=== PATIENT | female | born 1945 | race Caucasian/White ===

== ENCOUNTER 2018-02-15 09:54 | Day surgery (SDC) | payer MEDICARE, BC ==
[2018-02-15] MEDS ORDERED: Sodium Chloride 0.9% 10 ML Syringe FLUSH PRN (10:00)
[2018-02-15] MEDS ORDERED: Lactated Ringers 1,000 ML IV SCH (10:00)
[2018-02-15] MEDS ORDERED: Propofol 200 MG/20 ML SDV ONE ×2 (11:33→11:35)
[2018-02-15] MEDS ORDERED: Midazolam 1 MG/ML 2 ML SDV ONE ×2 (11:33→11:35)
--- NOTE | 2018-02-15 11:38 | PCM.PN ---
- General Info Date of Service: 02/15/18 - Review of Systems Systems Review Comment:: 72-year-old female referred by Dr. Sina Parks for colonoscopy. She has been having difficulty with it significant change in bowel pattern over the last 2 months. She has developed profound constipation. She is medically stable to proceed with colonoscopy. There is been no significant change in her health status since her recent exam. I have discussed the proposed colonoscopy with the patient. Risks such as but not limited to bleeding and GI injury reviewed. She appears to understand and agrees to proceed. - Patient Data Vitals - Most Recent: Last Vital Signs Temp 98.0 F 02/15/18 10:43 Pulse 73 02/15/18 10:43 Resp 18 02/15/18 10:43 BP 138/60 02/15/18 10:43 Pulse Ox 96 02/15/18 10:43 Weight - Most Recent: 65.317 kg Med Orders - Current: Current Medications Lactated Ringer's (Ringers, Lactated) 1,000 mls @ 125 mls/hr IV ASDIRECTED BISHOP Last Admin: 02/15/18 11:15 Dose: 125 mls/hr Sodium Chloride (Saline Flush) 10 ml FLUSH ASDIRECTED PRN PRN Reason: Keep Vein Open Discontinued Medications Midazolam HCl (Versed 1 Mg/Ml) Confirm Administered Dose 2 mg .ROUTE .STK-MED ONE Stop: 02/15/18 11:34 Propofol (Diprivan 20 Ml) Confirm Administered Dose 200 mg .ROUTE .STK-MED ONE Stop: 02/15/18 11:34 - Problem List Review Problem List Initiated/Reviewed/Updated: Yes - My Orders Last 24 Hours: My Active Orders 02/15/18 10:00 Patient Status [ADT] Routine Peripheral IV Care [RC] . DIRECTED Verify Patient Consent Obtain [RC] ASDIRECTED Lactated Ringers [Ringers, Lactated] 1,000 ml IV ASDIRECTED Sodium Chloride 0.9% [Saline Flush] 10 ml FLUSH ASDIRECTED PRN Peripheral IV Insertion Adult [OM.PC] Routine - Assessment Assessment:: Change in bowel pattern - Plan Plan:: Colonoscopy
--- NOTE | 2018-02-15 12:19 | PCM.OPNOTE ---
- General Post-Op/Procedure Note Date of Surgery/Procedure: 02/15/18 Operative Procedure(s): Colonoscopy Findings: Mild sigmoid diverticulosis Tortuous colon Pre Op Diagnosis: Change in bowel habits Post-Op Diagnosis: Diverticulosis Anesthesia Technique: MAC Primary Surgeon: Kirt Carrasquillo Pathology: none Output, Urine Amount: 0 EBL in mLs: 0 Complications: None Condition: Good Free Text/Narrative:: Intake & Output 02/14/18 02/15/18 02/15/18 22:59 06:59 14:59 Intake Total 300 Balance 300
[2018-02-15 13:25] VITALS: BP 122/67
--- NOTE | 2018-02-15 16:17 | OR ---
Date of Procedure: 02/15/2018 PREOPERATIVE DIAGNOSIS: Change in bowel habits. POSTOPERATIVE DIAGNOSIS: Diverticulosis. OPERATION PERFORMED: Colonoscopy. INDICATIONS FOR SURGERY: This 72-year-old female has developed significant change in her bowel pattern over the last 2 months with profound constipation. She is referred for a diagnostic colonoscopy. FINDINGS: The patient's colon showed a mild degree of diverticulosis in the sigmoid region. There was no sign of stenosis or acute inflammation in this area. The remainder of the colon appeared normal, although it was quite tortuous. DESCRIPTION OF PROCEDURE: The patient was taken to the operating room. She was given intravenous sedation, and with her in the left lateral decubitus position, digital rectal exam was performed showing no rectal masses. The Olympus colonoscope was inserted into the rectum and retroflexed examination of the rectal canal was performed. The scope was then carefully advanced under direct visualization through the entire length of the colon until the cecum was reached. It was somewhat difficult to reach the cecum and did require persistent careful manipulation along with hand pressure, but eventually the cecum was able to be reached and identified by viewing the ileocecal valve and appendiceal orifice and noting the light to transilluminate the abdominal wall in the right lower quadrant. After examining the cecum, the scope was slowly withdrawn sequentially re-examining the colonic segments until the entire colon and rectum had been fully examined. The scope was removed and the patient was taken from the operating room in satisfactory condition. ESTIMATED BLOOD LOSS: Zero. COMPLICATIONS: None. PROGNOSIS: Good. AYAZ Carrasquillo MD /[id number]
== END 2018-02-15 13:27 | disposition home or self-care (01) ==
LOC: LL.SDS 09:54
PROVIDERS: ATTEND Surgery
DX: K57.30 Diverticulosis of large intestine without perforation or abscess without bleeding (principal); K56.2 Volvulus; K59.00 Constipation, unspecified; Z79.82 Long term (current) use of aspirin; Z79.899 Other long term (current) drug therapy; Z88.8 Allergy status to other drugs, medicaments and biological substances; Z88.5 Allergy status to narcotic agent; Z88.2 Allergy status to sulfonamides
CPT/HCPCS: 00811; 45378; J2250; J2704; J7120